=== PATIENT | female | born 1945 | race Caucasian/White ===

== ENCOUNTER 2021-01-20 14:58 | Day surgery (SDC) | payer OTHER ==
[2021-01-20] MEDS ORDERED: IRON SUCROSE INJECTION 200 MG in SODIUM CHLORIDE 100 ML IVPB ONE (15:30)
[2021-01-20 17:20] VITALS: BP 104/74; PULSE 82; TEMP 98.6
== END 2021-01-20 17:39 | disposition home or self-care (01) ==
LOC: JONCNONCHE 14:58 → EDSTATUS 17:38 → JONCNONCHE 17:39
PROVIDERS: ATTEND Internal Medicine Hematology & Oncology
PROC: 3E033GC Introduction of Other Therapeutic Substance into Peripheral Vein, Percutaneous Approach (ICD-10-PCS; principal; 2021-01-20)
DX: D50.9 Iron deficiency anemia, unspecified (principal)
CPT/HCPCS: 96365; J1756

== ENCOUNTER 2021-01-23 07:54 | Day surgery (SDC) | payer OTHER ==
[2021-01-23] MEDS ORDERED: IRON SUCROSE INJECTION 200 MG in SODIUM CHLORIDE 100 ML IVPB ONE (09:00)
[2021-01-23 10:23] VITALS: BP 110/46; PULSE 89
[2021-01-23 10:26] VITALS: TEMP 98.2
== END 2021-01-23 09:30 | disposition home or self-care (01) ==
LOC: JONCNONCHE 07:54
PROVIDERS: ATTEND Internal Medicine Hematology & Oncology
PROC: 3E033GC Introduction of Other Therapeutic Substance into Peripheral Vein, Percutaneous Approach (ICD-10-PCS; principal; 2021-01-23)
DX: D50.9 Iron deficiency anemia, unspecified (principal)
CPT/HCPCS: 96365; J1756

== ENCOUNTER 2021-01-27 07:29 | Day surgery (SDC) | payer OTHER ==
[2021-01-27] MEDS ORDERED: IRON SUCROSE INJECTION 200 MG in SODIUM CHLORIDE 100 ML IVPB ONE (10:30)
[2021-01-27 10:45] LABS: BASO % 0.6 % (0-2.0); EOS % 2.7 % (0-4.5); HEMATOCRIT 26.6 % (32.4-45.2); HEMOGLOBIN 8.4 GM/dL (10.7-15.3); LYMPH % 11.3 % (8-40); MCH 23.9 pg (25.7-33.7); MCHC 31.4 g/dl (32.0-36.0); MEAN PLT VOLUME 8.9 fl (7.5-11.1); MONO % 7.5 % (3.8-10.2); NEUT % 77.9 % (42.8-82.8); PLATELET COUNT 327 K/MM3 (134-434); RBC 3.51 M/mm3 (3.60-5.2); RDW 20.6 % (11.6-15.6); WHITE BLOOD COUNT 7.9 K/mm3 (4.0-10.0)
[2021-01-27 11:05] LABS: CALCIUM 9.8 mg/dL (8.5-10.1)
[2021-01-27 11:06] LABS: ALBUMIN 3.5 g/dl (3.4-5.0); BLOOD UREA NITROGEN 30.6 mg/dL (7-18); IRON SERUM 32 ug/dL (50-175); TOTAL IRON BINDING CAPACITY 388 ug/dL (250-450)
[2021-01-27 11:09] LABS: CREATININE 1.5 mg/dL (0.55-1.3)
[2021-01-27 11:10] LABS: BILIRUBIN,TOTAL 0.2 mg/dL (0.2-1); TOT PROT 6.8 g/dl (6.4-8.2)
[2021-01-27 13:36] LABS: ANISOCYTOSIS 1+; MACROCYTOSIS 0; OVALOCYTE 1+; PLATELET ESTIMATE NORMAL
[2021-01-27 17:11] VITALS: BP 132/57; PULSE 87; TEMP 98.1
== END 2021-01-27 12:05 | disposition home or self-care (01) ==
LOC: JONCNONCHE 07:29
PROVIDERS: ATTEND Internal Medicine Hematology & Oncology
PROC: 3E033GC Introduction of Other Therapeutic Substance into Peripheral Vein, Percutaneous Approach (ICD-10-PCS; principal; 2021-01-27)
DX: D50.9 Iron deficiency anemia, unspecified (principal); Z88.0 Allergy status to penicillin
CPT/HCPCS: 36415; 80053; 82728; 83540; 83550; 85025; 96365; J1756

== ENCOUNTER 2021-01-31 07:16 | Day surgery (SDC) | payer OTHER ==
[2021-01-31] MEDS ORDERED: IRON SUCROSE INJECTION 200 MG in SODIUM CHLORIDE 100 ML IVPB ONE (09:30)
[2021-01-31 14:53] VITALS: TEMP 98.8
[2021-01-31 14:54] VITALS: BP 112/63; PULSE 83
== END 2021-01-31 09:30 | disposition home or self-care (01) ==
LOC: JONCNONCHE 07:16
PROVIDERS: ATTEND Internal Medicine Hematology & Oncology
PROC: 3E033GC Introduction of Other Therapeutic Substance into Peripheral Vein, Percutaneous Approach (ICD-10-PCS; principal; 2021-01-31)
DX: D50.9 Iron deficiency anemia, unspecified (principal); Z88.0 Allergy status to penicillin
CPT/HCPCS: 96365; J1756

== ENCOUNTER 2021-02-03 08:06 | Day surgery (SDC) | payer OTHER ==
[2021-02-03] MEDS ORDERED: IRON SUCROSE INJECTION 200 MG in SODIUM CHLORIDE 90 ML IVPB ONE (10:00)
[2021-02-03 16:07] VITALS: BP 119/50; PULSE 86; TEMP 98.3
== END 2021-02-03 11:15 | disposition home or self-care (01) ==
LOC: JONCNONCHE 08:06
PROVIDERS: ATTEND Internal Medicine Hematology & Oncology
PROC: 3E033GC Introduction of Other Therapeutic Substance into Peripheral Vein, Percutaneous Approach (ICD-10-PCS; principal; 2021-02-03)
DX: D50.9 Iron deficiency anemia, unspecified (principal); Z88.0 Allergy status to penicillin
CPT/HCPCS: 96365; J1756

== ENCOUNTER 2021-02-06 06:57 | Day surgery (SDC) | payer OTHER ==
[2021-02-06] MEDS ORDERED: IRON SUCROSE INJECTION 200 MG in SODIUM CHLORIDE 100 ML IVPB ONE (10:00)
[2021-02-06 15:15] VITALS: TEMP 98.1
[2021-02-06 15:16] VITALS: BP 113/68; PULSE 70
== END 2021-02-06 13:10 | disposition home or self-care (01) ==
LOC: JONCNONCHE 06:57
PROVIDERS: ATTEND Internal Medicine Hematology & Oncology
PROC: 3E033GC Introduction of Other Therapeutic Substance into Peripheral Vein, Percutaneous Approach (ICD-10-PCS; principal; 2021-02-06)
DX: D50.9 Iron deficiency anemia, unspecified (principal)
CPT/HCPCS: 74177-TC; 96365; 96375; C1887; J1756